=== PATIENT | female | born 1965 | race Caucasian/White ===

== ENCOUNTER 2020-02-21 09:35 | Outpatient (REF) | payer OTHER, SELFPAY ==
--- NOTE | 2020-02-21 09:51 | MR_ITS ---
EXAMINATION: MR CERVICAL SPINE WITHOUT CONTRAST CLINICAL INFORMATION: Right arm pain for 2 months. Numbness feeling in the right hand. COMPARISON: None available. TECHNIQUE: MRI of the cervical spine was obtained using routine sequences without contrast. FINDINGS: Straightening of the normal cervical lordosis. Mild degenerative anterolisthesis of C2 on C3. Degenerative retrolisthesis of C5 on C6. Advanced degenerative disc disease at C5-C6. Mild disc desiccation at all additional cervical levels. There is associated Modic type I discogenic edema at C5-C6. No additional suspicious marrow edema. The vertebral body heights are largely maintained. No abnormal spinal cord signal demonstrated. Limited evaluation of the soft tissues of the neck without demonstrated abnormalities. Dominant left-sided vertebral artery. No flow-void is demonstrated associated with a right-sided vertebral artery. The flow voids of the visualized carotids are maintained. Normal appearance of the cervicomedullary junction and visualized posterior fossa. SPINAL LEVELS: C2-C3: Normal annular contour. There is no uncovertebral joint arthropathy. There is mild bilateral facet joint arthropathy. There is no neural foraminal stenosis. There is no spinal canal stenosis. C3-C4: Shallow disc-osteophyte complex. There is no uncovertebral joint arthropathy. There is mild bilateral facet joint arthropathy. There is no neural foraminal stenosis. There is no spinal canal stenosis. C4-C5: Mild disc-osteophyte complex. There is mild left and no right uncovertebral joint arthropathy. There is mild bilateral facet joint arthropathy. There is no neural foraminal stenosis. There is no spinal canal stenosis. C5-C6: Moderate disc-osteophyte complex. There is moderate bilateral uncovertebral joint arthropathy. There is mild to moderate bilateral facet joint arthropathy. There is moderate right and mild left neural foraminal stenosis. There is minimal narrowing of the spinal canal without overt spinal cord compression. C6-C7: Mild disc-osteophyte complex. There is moderate right and mild left uncovertebral joint arthropathy. There is mild bilateral facet joint arthropathy. There is mild right and no left neural foraminal stenosis. There is no spinal canal stenosis. C7-T1: Normal annular contour. There is no uncovertebral joint arthropathy. There is no facet joint arthropathy. There is no neural foraminal stenosis. There is no spinal canal stenosis. IMPRESSION: Mild to moderate multilevel degenerative spondyloarthropathy of the cervical spine as described in detail above. Most notably, there is advanced degenerative disc disease at C5-C6. No overt spinal canal stenosis. There are mild to moderate right worse than left neural foraminal stenoses at C5-C6 and C6-C7. Of note, there is lack of demonstrated flow on the right-sided vertebral artery. The left-sided vertebral artery appears compensatorily enlarged suggesting a chronic process.
== END 2020-02-21 09:36 | disposition home or self-care (01) ==
LOC: HO.MRI 09:35
PROVIDERS: Visit Provider Internal Medicine
DX: M79.601 Pain in right arm (principal); R20.0 Anesthesia of skin
CPT/HCPCS: 72141

== ENCOUNTER → 2020-02-24 08:47 | Outpatient (BNVA) | payer OTHER, SELFPAY | PROVIDERS: PCP Nurse Practitioner Family; Visit Provider Internal Medicine | DX: Z13.89 Encounter for screening for other disorder (principal) | CPT/HCPCS: 99214 ==

== ENCOUNTER → 2020-03-07 09:36 | Outpatient (BNVA) | payer OTHER, SELFPAY | PROVIDERS: PCP Nurse Practitioner Family; Visit Provider Internal Medicine | DX: M54.12 Radiculopathy, cervical region (principal); M79.601 Pain in right arm; R20.0 Anesthesia of skin; M62.81 Muscle weakness (generalized) | CPT/HCPCS: 99214 ==

== ENCOUNTER → 2020-03-20 08:39 | Outpatient (BNVA) | payer OTHER, SELFPAY | PROVIDERS: PCP Nurse Practitioner Family; Visit Provider Internal Medicine | DX: M54.10 Radiculopathy, site unspecified (principal); R20.0 Anesthesia of skin; R53.1 Weakness | CPT/HCPCS: 99213 ==

== ENCOUNTER → 2020-04-03 09:10 | Outpatient (BNVA) | payer OTHER, SELFPAY | PROVIDERS: PCP Nurse Practitioner Family; Visit Provider Internal Medicine | DX: M79.621 Pain in right upper arm (principal); M50.10 Cervical disc disorder with radiculopathy, unspecified cervical region | CPT/HCPCS: 99213 ==

== ENCOUNTER → 2020-05-01 08:42 | Outpatient (BNVA) | payer OTHER, SELFPAY | PROVIDERS: PCP Nurse Practitioner Family; Visit Provider Internal Medicine | DX: M79.601 Pain in right arm (principal); M54.10 Radiculopathy, site unspecified | CPT/HCPCS: 99213 ==

== ENCOUNTER → 2020-05-09 13:05 | Outpatient (BNVA) | payer OTHER, SELFPAY | PROVIDERS: PCP Nurse Practitioner Family; Visit Provider Internal Medicine | DX: M79.631 Pain in right forearm (principal) | CPT/HCPCS: 99213 ==

== ENCOUNTER → 2020-05-30 09:18 | Outpatient (BNVA) | payer OTHER, SELFPAY | PROVIDERS: PCP Nurse Practitioner Family; Visit Provider Physician Assistant | DX: M54.10 Radiculopathy, site unspecified (principal) | CPT/HCPCS: 99213 ==

== ENCOUNTER → 2020-06-13 | Outpatient (BNVA) | payer OTHER, SELFPAY | PROVIDERS: PCP Nurse Practitioner Family; Visit Provider Internal Medicine | DX: M79.602 Pain in left arm (principal); M79.601 Pain in right arm; M54.10 Radiculopathy, site unspecified | CPT/HCPCS: 99214 ==

== ENCOUNTER → 2020-06-21 11:00 | Outpatient (BNVA) | payer OTHER, SELFPAY | PROVIDERS: PCP Nurse Practitioner Family; Visit Provider Internal Medicine | DX: M79.603 Pain in arm, unspecified (principal); M54.10 Radiculopathy, site unspecified | CPT/HCPCS: 99213 ==

== ENCOUNTER → 2020-07-05 11:49 | Outpatient (BNVA) | payer OTHER, SELFPAY | PROVIDERS: PCP Nurse Practitioner Family; Visit Provider Internal Medicine | DX: M54.12 Radiculopathy, cervical region (principal) | CPT/HCPCS: 99213 ==